=== PATIENT | male | born 1980 | race Caucasian/White ===

== ENCOUNTER 2024-06-23 20:32 | Inpatient (IN) | payer MEDICAID ==
[~2024-06-23] VITALS: Ht 182.9 cm; Wt 69.2 kg
[2024-06-23] MEDS ORDERED: NO HOME MEDS (20:53)
[2024-06-23 21:36] LABS: BASOPHILS # (AUTO) 0.1 X10'3 (0-0.2); BASOPHILS % (AUTO) 0.5 % (0-1); EOSINOPHILS # (AUTO) 0.1 X10'3 (0-0.9); EOSINOPHILS % (AUTO) 1.1 % (0-6); HEMATOCRIT 48.9 % (42.0-52.0); HEMOGLOBIN 16.3 g/dl (14.0-17.9); LYMPHOCYTES # (AUTO) 3.4 X10'3 (1.1-4.8); LYMPHOCYTES % (AUTO) 30.7 % (21-51); MEAN CORPUSCULAR HEMOGLOBIN 30.8 PG (27.0-31.0); MEAN CORPUSCULAR HGB CONC 33.4 g/dL (33.0-36.5); MEAN CORPUSCULAR VOLUME 92.4 FL (78-98); MEAN PLATELET VOLUME 8.9 FL (7.4-10.4); MONOCYTES # (AUTO) 0.6 X10'3 (0-0.9); MONOCYTES % (AUTO) 5.6 % (2-12); NEUTROPHILS # (AUTO) 6.8 X10'3 (1.8-7.7); NEUTROPHILS % (AUTO) 62.1 % (42-75); PLATELET COUNT 231 X10'3 (140-440); RED CELL DISTRIBUTION WIDTH 13.4 % (11.5-14.5)
[2024-06-23 21:47] LABS: ALANINE AMINOTRANSFERASE 38 U/L (12-78); ALBUMIN 4.5 G/DL (3.4-5.0); ALBUMIN/GLOBULIN RATIO 1.2 (1.1-1.5); ALKALINE PHOSPHATASE 86 IU/L (46-116); ANION GAP 14 (8-16); ASPARTATE AMINO TRANSFERASE 30 U/L (10-37); BILIRUBIN,TOTAL 0.4 MG/DL (0.1-1.0); BLOOD UREA NITROGEN 10 MG/DL (7-18); BUN/CREATININE RATIO 11.2 (10.0-20.0); CALCIUM 9.1 MG/DL (8.5-10.1); CHLORIDE 107 MMOL/L (99-107); CREATININE 0.89 MG/DL (0.60-1.10); ETHANOL 294 MG/DL (<10); GLUCOSE 92 MG/DL (70-104); POTASSIUM 3.9 MMOL/L (3.5-5.1); SODIUM 146 MMOL/L (135-145); TOTAL PROTEIN 8.2 G/DL (6.4-8.2); eCRCL 111 ML/MIN; eGFR > 90 ML/MIN
[2024-06-24 10:48] LABS: URINE AMPHETAMINE SCREEN NEGATIVE (Neg); URINE BARBITUATE SCREEN NEGATIVE (Neg); URINE BENZODIAZEPINES SCREEN NEGATIVE (Neg); URINE CANNABINOID SCREEN POSITIVE (Neg); URINE COCAINE SCREEN NEGATIVE (Neg); URINE METHADONE SCREEN NEGATIVE (Neg); URINE OPIATE SCREEN NEGATIVE (Neg); URINE PHENCYCLIDINE SCREEN NEGATIVE (Neg)
[2024-06-24 18:56] LABS: BILIRUBIN,URINE SMALL (Neg); CLARITY,URINE CLOUDY (Clear); COLOR,URINE YELLOW (Yellow); GLUCOSE, URINE NEGATIVE (Neg); KETONES,URINE 40 mg/dl (Neg); LEUKOCYTE ESTERASE ,URINE NEGATIVE (Neg); NITRITES, URINE NEGATIVE (Neg); OCCULT BLOOD,URINE NEGATIVE (Neg); PH,URINE 6.5 (4.8-8.0); PROTEIN,URINE 30 mg/dl (Neg)
[2024-06-24 19:00] LABS: UA COLLECTION TYPE CLN CATCH MIDSTREAM
[2024-06-24 19:02] LABS: MUCUS STRANDS MANY /LPF (Neg); SQUAMOUS EPITHELIAL CELL,UR FEW /LPF (FEW)
[2024-06-24 19:03] LABS: AMORPHOUS PHOSPHATES 4+
[2024-06-24 19:04] LABS: BACTERIA,URINE FEW /HPF (Neg); RBC,URINE 0-2 /HPF (0-2); WBC,URINE 0-4 /HPF (0-4)
[2024-06-24] MEDS: LORazepam 1 MG tablet PO ONE (20:36)
[2024-06-24] MEDS ORDERED: mag hydrox/Alum hydrox/simeth 30ml oral suspension PO PRN (21:40)
[2024-06-24] MEDS ORDERED: acetaminophen 325mg tablet PO PRN ×2 (21:40)
[2024-06-24] MEDS ORDERED: loperamide 2mg capsule PO PRN (21:40)
[2024-06-24] MEDS ORDERED: NICOTINE POLACRILEX 2 MG LOZENGE BC PRN (21:40)
[2024-06-24] MEDS ORDERED: magnesium hydroxide 30ml (MOM) UD suspension PO PRN (21:40)
[2024-06-24 22:30] VITALS: BP 137/100; PULSE 69; RESP 16; TEMP 98; O2SAT 97
[2024-06-24 22:31] VITALS: RESP 16; O2SAT 97
[2024-06-25 07:22] LABS: CHOL/HDL RATIO 2.9 (0.00-4.99); CHOLESTEROL 230 MG/DL (0-200); HDL CHOLESTEROL 80 MG/DL (35-60); LDL CHOLESTEROL 97 MG/DL (50-100); TRIGLYCERIDES 216 MG/DL (20-135)
[2024-06-25 07:23] LABS: HEMOGLOBIN A1C 5.1 % (4.5-6.2)
[2024-06-25 07:45] VITALS: BP 134/92; PULSE 84; RESP 16; TEMP 98.6; O2SAT 97
[2024-06-25] MEDS: nicotine 21mg patch - 24 hr TD SCH (08:00)
[2024-06-25 08:46] VITALS: RESP 16; O2SAT 97
[2024-06-25] MEDS: pneumococcal 23-VAL P-sac vacc 25 mcg/0.5ml vial IMVAC ONE (15:50)
[2024-06-25 19:26] VITALS: RESP 14; O2SAT 99
[2024-06-25 20:04] VITALS: BP 132/99; PULSE 71; RESP 14; TEMP 97.4; O2SAT 99
[2024-06-26 07:00] VITALS: RESP 16; O2SAT 94
[2024-06-26 08:00] VITALS: BP 120/91; PULSE 92; RESP 16; TEMP 97.8; O2SAT 99
[2024-06-26] MEDS ORDERED: NALT50TA5 PO (17:41)
[2024-06-26] MEDS ORDERED: NICO-687 TD (17:41)
[2024-06-26] MEDS ORDERED: TRAZ-251 PO (17:41)
[2024-06-26] MEDS ORDERED: NICO-907 BC (17:41)
[2024-06-26 19:49] VITALS: RESP 16; O2SAT 100
[2024-06-26 19:52] VITALS: BP 120/91; PULSE 67; RESP 16; TEMP 96.9; O2SAT 100
[2024-06-26] MEDS: traZODone 50mg tablet PO SCH (20:29)
[2024-06-27] MEDS ORDERED: naltrexone 50mg tablet PO SCH (08:00)
== END 2024-06-27 01:15 | disposition home or self-care (01) | DRG 756 ==
LOC: ER 20:33 → ADULT MH 06-24 17:00 → ED HOLD 06-24 20:32 → ADULT MH 06-24 21:11
PROVIDERS: ADMIT Psychiatry & Neurology Psychiatry; ATTEND Psychiatry & Neurology Psychiatry
DX: F41.9 Anxiety disorder, unspecified (principal); R45.851 Suicidal ideations; F32.A Depression, unspecified; E73.9 Lactose intolerance, unspecified; F10.20 Alcohol dependence, uncomplicated; Z20.822 Contact with and (suspected) exposure to COVID-19; F15.90 Other stimulant use, unspecified, uncomplicated; G47.00 Insomnia, unspecified; F17.210 Nicotine dependence, cigarettes, uncomplicated; Z59.00 Homelessness unspecified; Z90.49 Acquired absence of other specified parts of digestive tract
CPT/HCPCS: 36415; 80053; 80061; 80305; 80320; 81001; 83036; 84443; 85025; 87081; 87811; 90732; 99285; C2617